=== PATIENT | female | born 1965 | race Caucasian/White ===

== ENCOUNTER → 2016-04-18 | Outpatient (CLI) | payer OTHER ==
--- NOTE | 2016-04-20 17:19 | MA ---
Screening Digital Mammogram Clinical Indications: Routine screening. Technique: Standard cephalocaudal and mediolateral oblique projections are obtained. An additional c c view was performed of the right breast. This examination was processed by the [employer] computer aided detection system. Comparison: June 2014 Breast density: C; The breast tissue is heterogeneously dense, which could obscure detection of small masses. Findings: CAD was reviewed. Possible new focal asymmetry upper outer right breast. The remainder of t he right and left breast are stable.. Impression: Focal asymmetry upper outer right breast. Recommendation: Spot compression views and true lateral view. If persistent, proceed to ultrasound f or further characterization and localization purposes.. BI-RADS 0 additional imaging right breast. [facility] will send a result letter to the patient. Negative mammography should not preclude additional workup of a clinically suspicious finding. The patient's information is entered into a reminder system with a target due date for her next mammo gram.
== END ==
LOC: BRMIMAGING 14:33
DX: Z12.31 Encounter for screening mammogram for malignant neoplasm of breast (principal)
CPT/HCPCS: G0202

== ENCOUNTER → 2016-05-01 | Outpatient (CLI) | payer OTHER ==
--- NOTE | 2016-05-01 09:39 | US ---
1. Diagnostic Digital Right Mammogram regimen History: Asymmetry outer right breast. Comparison: Screening mammogram April 18, 2016, June 2014. Technique: A true lateral view and 2 spot films of the right breast. Density: C Findings: The asymmetry looks less prominent on the true lateral view and oblique lateral spot compre ssion view, but persists on the CC spot compression view. Impression: We will proceed to ultrasound for further evaluation. 2. Right Breast Sonogram History: Asymmetry outer right breast Findings: Corresponding to the mammographic density is a small cluster of microcysts, At the 10 o'elizabeth ck radial, 8 cm from the nipple. There is no internal nodularity or hypervascularity on Doppler smiley sis. Overall the cluster measures approximately 8 mm. Impression: The mammographic density is consistent with a probably benign cluster of microcysts.. Recommendation: 6 month follow-up ultrasound to ensure stability. BI-RADS 3. Probably benign Results and recommendation were communicated to the patient at the time of the examination.
== END ==
LOC: BRMIMAGING 08:54
DX: R92.2 Inconclusive mammogram (principal)
CPT/HCPCS: 76641-PO; G0206

== ENCOUNTER → 2017-06-11 | Outpatient (CLI) | payer OTHER | LOC: BRMIMAGING 12:54 | DX: Z12.31 Encounter for screening mammogram for malignant neoplasm of breast (principal) ==